=== PATIENT | female | born 1960 | race Caucasian/White ===

== ENCOUNTER 2017-02-03 14:47 | Emergency (ER) | payer OTHER ==
[~2017-02-03] VITALS: Ht 162.6 cm; Wt 75.0 kg
[2017-02-03 14:53] VITALS: BP 142/77; PULSE 90; RESP 20; TEMP 98; O2SAT 99
--- NOTE | 2017-02-03 15:31 | PD ---
Physical Exam Time Seen by Provider: 15:29 Narrative Pt presents to the ED for evaluation of cramping pain from left hip to left groin and thigh for 6 weeks. States she has had this problem for several years intermittently. States it caused her left knee buckle and fall onto her hands. VSS. Awaiting bed placement. Data Data Last Documented VS Vital Signs Date Time Temp Pulse Resp B/P Pulse Ox O2 Delivery O2 Flow Rate FiO2 02/03/17 14:53 98.0 90 20 142/77 99 Room Air MDM Supervised Visit with AMELIA: Manuela Valles Feb 03, 2017 15:31
--- NOTE | 2017-02-03 16:36 | PD ---
HPI Chief Complaint: Musculoskeletal Complaint Time Seen by Provider: 16:36 Travel History International Travel<30 days: No Contact w/Intl Traveler<30days: No Traveled to known affect area: No History of Present Illness HPI 56-year-old female presents to the emergency Department with complaint of left hip pain and thigh pain for the last 7 years. For the past 6 weeks she has had pain and decreased weakness to the left leg causing her to fall multiple times. Her last fall was 3 weeks ago. She uses a cane for support. She says when she bears weight her leg just gives out causing her to go down. She has an appointment with Dr. Nowak, orthopedic, on February 08. She has seen him in the past and at that time was told that she didn't need a hip replacement. She also states that her knee gives out. She denies paresthesias, loss of sensation to the affected extremity. Denies fever, vomiting. States she has done multiple outpatient therapy such as massage and chiropractic for her pain. Primary care provider is Dr. Denny. Allergies to Cymbalta, Medrol, Talwin, Zithromax. Has no other medical complaints. No other modifying factors or associated signs and symptoms. PFSH Past Medical History ?: Not Past Surgical History Hysterectomy: Yes Social History Tobacco Use: No Allergies-Medications (Allergen,Severity, Reaction): Coded Allergies: Medrol (Verified Allergy, Severe, 02/03/17) Zithromax (Verified Allergy, Severe, 02/03/17) Cymbalta (Verified Allergy, Intermediate, confusion, 02/03/17) Talwin (Verified Allergy, Unknown, hallucinations, 02/03/17) Review of Systems Except as stated in HPI: all other systems reviewed are Neg Physical Exam Narrative GENERAL: Well-nourished, well-developed female patient, in no acute distress; afebrile, nontoxic-appearing SKIN: Warm and dry. HEAD: Atraumatic. Normocephalic. EYES: Pupils equal and round. No scleral icterus. No injection or drainage. ENT: Mucosa pink and moist. Airway patent. NECK: Trachea midline. CARDIOVASCULAR: Regular rate. RESPIRATORY: No accessory muscle use. GASTROINTESTINAL: Rounded. MUSCULOSKELETAL: Left hip with full range of motion; without erythema, edema, or ecchymosis; with tenderness on abduction; tenderness on palpation to the left groin area; no obvious deformity; no leg length discrepancy. Left lower extremity is supple and non-tense with 2+ pedal pulse and sensory intact and without erythema or edema. Patient ambulatory in the room with a left lower leg limp and assistance with her cane. NEUROLOGICAL: Awake and alert. Oriented 3. No obvious cranial nerve deficits. Motor grossly within normal limits. Normal speech. PSYCHIATRIC: Appropriate mood and affect; insight and judgment normal. Data Data Last Documented VS Vital Signs Date Time Temp Pulse Resp B/P Pulse Ox O2 Delivery O2 Flow Rate FiO2 02/03/17 14:53 98.0 90 20 142/77 99 Room Air Orders Hip, Uni(Ap&Lat) W Ap Pelvis (02/03/17 16:35) MDM Medical Decision Making Medical Screen Exam Complete: Yes Emergency Medical Condition: Yes Medical Record Reviewed: Yes Differential Diagnosis Hip pain, Arthritis, groin strain, Narrative Course 56-year-old female with left hip/thigh pain. This going on for 7 years and she reports worsening in the last 6 weeks. No new or recent injury. Reports having a fall 3 weeks ago secondary to her left leg giving out. Said she cannot bear weight, although the patient is able to bear weight in the room on exam. She has a follow-up appointment with Dr. Nowak on February 08. Left hip with pelvis x-ray ordered. 1658: Patient is requesting to see a doctor. She says that she is not able to bear weight and I was trying to explain to her that she can bear weight as she is walking in the room. She continues to request to see a doctor. The patient will be moved to a medical bed for further treatment and evaluation. The patient ambulated in the hallway with her cane to the bathroom. Report given to Dr. Lawson. See his note for final disposition. Manuela Ashley [facility] Feb 03, 2017 16:36
--- NOTE | 2017-02-03 17:42 | RADRPT ---
EXAM DATE/TIME: 02/03/2017 17:19 [place] COMPARISON: No previous studies available for comparison. INDICATIONS : Left hip pain for 6 weeks, no known injury. MEDICAL HISTORY : None. SURGICAL HISTORY : None. ENCOUNTER: Initial ACUITY: 1 month PAIN SCORE: 8/10 LOCATION: Left hip. FINDINGS: Examination of the left hip was performed with AP Pelvis. The primary and secondary trabecular patte rn of the femoral neck is intact. There is mild to moderate osteoarthritis at the left hip joint. The re is mild osteoarthritis of the right hip joint. There are degenerative changes of the lower lumbar spine. There is good alignment of the SI joints and pubic symphysis.. CONCLUSION: 1. Mild to moderate osteoarthritis of the left hip. 2. Mild osteoarthritis of the right hip. Tim Rasmussen MD on February 03, 2017 at 17:39 Board Certified Radiologist. This report was verified electronically.
--- NOTE | 2017-02-03 19:59 | PD ---
Data Data Last Documented VS Vital Signs Date Time Temp Pulse Resp B/P Pulse Ox O2 Delivery O2 Flow Rate FiO2 02/03/17 14:53 98.0 90 20 142/77 99 Room Air Orders Hip, Uni(Ap&Lat) W Ap Pelvis (02/03/17 16:35) MDM Supervised Visit with AMELIA: Yes Narrative Course Medical decision-making new para this is a 56-year-old woman with chronic thigh and hip pain ongoing for years. She's had x-rays and MRIs and multiple evaluations that she reports of been generally unrevealing. She is an MRI with her to show some tendinopathy. She states it's getting worse and affect her ability walks. She came in today. She was seen by the nurse practitioner initial and requested to see a physician. She is a very unremarkable exam which is some medial thigh tenderness. She is good pulses. She has a plethora of concerns including the fact that her massage therapist mention that it could be something with the femoral artery. She is good pulses. Recommend outpatient follow-up with her primary doctor in orthopedics. Diagnosis Primary Impression: Chronic pain of left lower extremity Additional Instruction: Take acetaminophen or ibuprofen as needed for pain. Follow-up with her primary doctor for further evaluation and referral to specialist as needed. Return to the emergency department for any new or worsening symptoms. Med/Other Pt SpecificInfo: No Change to Meds Disposition: 01 DISCHARGE HOME Condition: Stable Amandeep Lawson MD Feb 03, 2017 19:59
[2017-02-03] MEDS ORDERED: MONT10TA2 PO (20:02)
[2017-02-03] MEDS ORDERED: TOPA50TA7 PO (20:02)
[2017-02-03] MEDS ORDERED: FLUT1SPR5 EACH NARE (20:02)
[2017-02-03] MEDS ORDERED: SERO100T PO (20:02)
[2017-02-03] MEDS ORDERED: OMEP20TA PO (20:02)
[2017-02-03] MEDS ORDERED: MOBI15TA PO (20:02)
[2017-02-03] MEDS ORDERED: SUCR1TAB PO (20:02)
[2017-02-03] MEDS ORDERED: VENL37.5 PO (20:02)
[2017-02-03] MEDS ORDERED: BUPR100CR PO (20:02)
== END 2017-02-03 20:39 | disposition home or self-care (01) ==
LOC: NEPD 14:47
DX: M79.662 Pain in left lower leg (principal)
CPT/HCPCS: 73502; 99283